=== PATIENT | male | born 1990 | race Caucasian/White ===

== ENCOUNTER → 2019-12-16 | Outpatient (CLI) | payer OTHER | END | disposition home or self-care (01) | LOC: EMS 11:41 | DX: Z20.828 Contact with and (suspected) exposure to other viral communicable diseases (principal) | CPT/HCPCS: U0003-CS ==

== ENCOUNTER 2020-02-22 14:24 | Emergency (ER) | payer OTHER ==
[~2020-02-22] VITALS: Ht 172.7 cm; Wt 72.7 kg
[2020-02-22 14:40] LABS: COVID AG,FIA SOURCE NASOPHARYNGEAL
[2020-02-22 16:01] VITALS: BP 135/86
== END 2020-02-22 16:11 | disposition home or self-care (01) ==
LOC: EMS 14:30
DX: Z20.828 Contact with and (suspected) exposure to other viral communicable diseases (principal)
CPT/HCPCS: 87426